=== PATIENT | female | born 1995 | race Caucasian/White ===

== ENCOUNTER 2020-01-03 14:00 | Observation (INO) | payer OTHER, SELFPAY ==
[2020-01-03 15:01] VITALS: BP 114/63; PULSE 101
[2020-01-03 15:16] VITALS: BP 115/55; PULSE 97
[2020-01-03 15:31] VITALS: BP 112/63; PULSE 100
[2020-01-03 15:46] VITALS: BP 117/66; PULSE 97
[2020-01-03 16:16] VITALS: BP 109/70; PULSE 92
[2020-01-03 16:34] LABS: Add Urine Microscopic? YES; Appearance Urine Clear (Clear); Bacteria Urine Trace /hpf; Bilirubin Urine Negative (Negative); Blood Urine Negative (Negative); Color Urine Straw (Yellow); Glucose Urine UA 3+ mg/dL (Negative); Ketones Urine Negative (Negative); Leukocyte Esterase Ur Trace LEU/UL (NEGATIVE); Nitrate Urine Negative (Negative); Protein Urine Negative (Negative); RBC Urine 0-2 /hpf (0-2); Specific Grav Ur 1.005 (1.001-1.035); Squamous Epithelial Cell Urine Moderate /hpf (Few); Urobilinogen Urine Negative mg/dL (<2.0); WBC Urine 0-3 /hpf (0-3)
[2020-01-03 17:22] VITALS: BMI 45.6
--- NOTE | 2020-01-03 17:22 | OBADM ---
This patient, Nafisa Ralph, admitted to the OB room OB Post 116 for observation. Patient/family oriented to hospital policies and general routines including ID bracelet, bed and alarms, visiting hours, pain management, procedures, bathroom and other care routines, personal items, smoking policy, room service/diet, and visiting hours. Patient/Family are encouraged to report perceived risks to care and to ask questions if they do not understand what they are told or what they should do.
--- NOTE | 2020-01-05 08:05 | P.PNOB_ITS ---
OB - Triage/Final Diagnosis Visit Information Reason for evaluation: threatened labor Evaluation Laboratory results: Laboratory Tests 01/03/20 16:24 Urine Color Straw Urine Appearance Clear Urine pH 6.0 Ur Specific [place] 1.005 Urine Protein Negative Urine Glucose (UA) 3+ H Urine Ketones Negative Ur Blood (Man) Negative Urine Nitrate Negative Urine Bilirubin Negative Urine Urobilinogen Negative Ur Leukocyte Esterase Trace H Urine RBC 0-2 Urine WBC 0-3 Ur Squamous Epith Cells Moderate H Urine Bacteria Trace
== END 2020-01-03 17:20 | disposition home or self-care (01) ==
PROVIDERS: Admitting Provider Obstetrics & Gynecology; Visit Provider Obstetrics & Gynecology
DX: O47.03 False labor before 37 completed weeks of gestation, third trimester (principal); Z3A.33 33 weeks gestation of pregnancy
CPT/HCPCS: 81001; 87086; 87088; G0378; G0379

== ENCOUNTER 2020-01-26 22:55 | Observation (INO) | payer OTHER, SELFPAY ==
[2020-01-26 23:12] VITALS: TEMP 36.3
[2020-01-26 23:30] VITALS: BP 126/69; PULSE 93
--- NOTE | 2020-01-26 23:49 | OBADM ---
This patient, Nafisa Ralph, admitted to the OB room OB Post 115 for observation. Patient/family oriented to hospital policies and general routines including ID bracelet, bed and alarms, visiting hours, pain management, procedures, bathroom and other care routines, personal items, smoking policy, room service/diet, and visiting hours. Patient/Family are encouraged to report perceived risks to care and to ask questions if they do not understand what they are told or what they should do.
--- NOTE | 2020-01-28 01:35 | PM.OBTRLD ---
OB - Triage/Final Diagnosis Final Diagnosis (1) False labor: Code(s): O47.9 - False labor, unspecified Status: Acute
--- NOTE | 2020-01-28 10:18 | PM.OBTRLD ---
OB - Triage/Final Diagnosis Final Diagnosis (1) False labor: Code(s): O47.9 - False labor, unspecified Status: Acute
== END 2020-01-26 23:45 | disposition home or self-care (01) ==
PROVIDERS: Admitting Provider Obstetrics & Gynecology; Visit Provider Obstetrics & Gynecology
DX: O47.03 False labor before 37 completed weeks of gestation, third trimester (principal); Z3A.36 36 weeks gestation of pregnancy
CPT/HCPCS: G0378; G0379

== ENCOUNTER 2020-01-27 16:16 | Observation (INO) | payer OTHER, SELFPAY ==
--- NOTE | 2020-01-27 16:16 | OBADM ---
This patient, Nafisa Ralph, admitted to the OB room Labor/Delivery/Recovery 106 for observation. Patient/family oriented to hospital policies and general routines including ID bracelet, bed and alarms, visiting hours, pain management, procedures, bathroom and other care routines, personal items, smoking policy, room service/diet, and visiting hours. Patient/Family are encouraged to report perceived risks to care and to ask questions if they do not understand what they are told or what they should do.
[2020-01-27 16:40] VITALS: BMI 46.1
[2020-01-27 17:15] VITALS: BP 117/48; PULSE 86
[2020-01-27 17:30] VITALS: BP 115/49; PULSE 81
--- NOTE | 2020-01-31 17:21 | PM.OBTRLD ---
OB - Triage/Final Diagnosis Final Diagnosis (1) False labor: Code(s): O47.9 - False labor, unspecified Status: Acute
== END 2020-01-27 18:00 | disposition home or self-care (01) ==
PROVIDERS: Admitting Provider Obstetrics & Gynecology; Visit Provider Obstetrics & Gynecology
DX: O47.03 False labor before 37 completed weeks of gestation, third trimester (principal); Z3A.36 36 weeks gestation of pregnancy
CPT/HCPCS: G0378; G0379

== ENCOUNTER 2020-02-01 15:33 | Outpatient (CLI) | payer OTHER, SELFPAY ==
[2020-02-01 17:18] VITALS: BP 116/68; PULSE 104
== END 2020-02-01 17:25 | disposition home or self-care (01) ==
LOC: ANHOBOP 17:34
PROVIDERS: Visit Provider Obstetrics & Gynecology
DX: Z34.90 Encounter for supervision of normal pregnancy, unspecified, unspecified trimester (principal); Z3A.00 Weeks of gestation of pregnancy not specified
CPT/HCPCS: 59025; 84112

== ENCOUNTER 2020-02-04 10:17 | Outpatient (RCR) | payer OTHER, SELFPAY ==
--- NOTE | ~2020-02-04 | US_ITS ---
EXAMINATION: US OB BPP wo non-stress DATE: 02/04/2020 11:37 INDICATION: Diabetes, third trimester TECHNIQUE: Real-time pelvic ultrasound was performed. The interpreting radiologist was not present fo r the study. COMPARISON: None. FINDINGS: There is a single living fetus in vertex presentation. The placenta is anterior. heart rate is 138 beats per minute (bpm). Biophysical profile performed by the technologist: breathing (30 sec sustained breathing in 30 minutes): 2 out of 2 movement (3 gross body movements in 30 minutes): 2 out of 2 tone (one episode of jdmwkpz-tehvfsxmj-odyamix limb movement): 2 out of 2 Amniotic fluid pocket (2 cm): 2 out of 2 Total score: 8 out of 8 IMPRESSION: 1. Single living fetus in vertex presentation. 2. Biophysical profile 8 out of 8. Reviewed, dictated and finalized at location B.
[2020-02-04 10:50] VITALS: BP 116/68; PULSE 87
== END 2020-02-16 07:51 | disposition home or self-care (01) ==
LOC: ANHOBOP 10:17
PROVIDERS: Visit Provider Obstetrics & Gynecology
DX: O36.8130 Decreased fetal movements, third trimester, not applicable or unspecified (principal); Z3A.37 37 weeks gestation of pregnancy
CPT/HCPCS: 59025; 76819

== ENCOUNTER 2020-02-14 06:28 | Inpatient (IN) | payer OTHER, SELFPAY ==
--- NOTE | 2020-02-11 13:48 | PC.NURSE ---
PATIENT STATES SHE ALLERGIC TO DISSOLVABLE STITCHES. STATES SHE HAD A REACTION TO THE STITCHES SO HER SCAR IS LARGE ON HER BREAST FROM MOLE BEING REMOVED
[2020-02-14] VITALS (156 sets, daily range): BP systolic 74–152; BP diastolic 44–123; PULSE 33–227; RESP 16; TEMP 36.6–37; O2SAT 84–100; BMI 47.6
--- NOTE | 2020-02-14 06:28 | LDADM ---
This patient, Nafisa Ralph, was admitted to Labor/Delivery/Recovery 108 on 02/14/20 at 06:28. Plans for labor, pain management and were discussed with patient. Patient/family oriented to hospital policies and general routines including ID bracelet, bed and alarms, visiting hours, pain management, procedures, bathroom and other care routines, personal items, smoking policy, room service/diet and guest tray routines, infant security routines, and visiting hours. Patient/Family are encouraged to report perceived risks to care and to ask questions if they do not understand what they are told or what they should do. See OBIX for further documentation.
[2020-02-14] MEDS: AMPICILLIN 2 GM/NS 100 ML 2 GM/100 ML BAG IVPB (07:08)
[2020-02-14] MEDS: LACTATED RINGERS 1,000 ML 125 ML IV CONT ×3 (07:08→12:05)
[2020-02-14] MEDS: OXYTOCIN 30 UNITS/NS 500 ML 30 UNITS/500 ML BAG IV CONT (07:09)
[2020-02-14 07:16] LABS: Basophils Percent Auto 0.3 % (0.2-1.2); Eosinophils Percent Auto 0.4 % (0-4.4); Hematocrit 38.1 % (37.0-47.0); Hemoglobin 12.6 g/dL (12.0-15.0); Immature Granulocyte Absolute 0.04 K/mm3 (0.00-0.031); Immature Granulocyte Percent A 0.4 % (0-0.5); Lymphocytes Percent Auto 25.5 % (18.3-44.2); Mean Corpuscular HGB Conc 33.1 g/dl (32-36); Mean Corpuscular Hemoglobin 24.8 pg (26-34); Mean Platelet Volume 9.7 fl (7.4-10.4); Monocytes Absolute Auto 0.6 K/mm3 (0.1-0.6); Monocytes Percent Auto 6.5 % (2.6-8.5); Neutrophils Absolute Auto 6.6 K/mm3 (1.3-6.7); Neutrophils Percent Auto 66.9 % (45.5-73.1); Platelet Count Result 287 k/mm3 (150-375); Red Blood Count 5.08 M/mm3 (4.2-5.4); Red Cell Distribution Width 12.7 % (11.5-14.5); White Blood Count 9.8 K/mm3 (4.5-10.0)
--- NOTE | 2020-02-14 07:34 | P.PNAN_ITS ---
Anes - Initial Pre Proc Eval Procedure: Labor Epidural Date/Time: 02/14/20 07:34 Surgeon: Robert Granados MD Pre Op Diagnosis: Induction of Labor Patient Data Age: 24 Gender: F Height: Weight: Last Vital Signs Temp 36.6 C 02/14/20 07:18 Pulse 85 02/14/20 07:30 BP 127/64 02/14/20 07:30 Allergies Allergy/AdvReac Type Severity Reaction Status Date / Time No Known Allergies Allergy Verified 02/11/20 13:33 Home Medications Medication Instructions Recorded Confirmed Type PNV cmb#95-ferrous fumarate-FA 1 tablet PO DAILY 02/01/20 02/01/20 History [] sertraline [Zoloft] 50 mg PO DAILY 02/01/20 02/01/20 History Laboratory Tests 02/14/20 02/14/20 07:02 07:02 WBC 9.8 K/mm3 K/mm3 (4.5-10.0) RBC 5.08 M/mm3 M/mm3 (4.2-5.4) Hgb 12.6 g/dL g/dL (12.0-15.0) Hct 38.1 % % (37.0-47.0) MCV 75.0 fl L fl (80-100) MCH 24.8 pg L pg (26-34) MCHC 33.1 g/dl g/dl (32-36) RDW 12.7 % % (11.5-14.5) Plt Count 287 k/mm3 k/mm3 (150-375) MPV 9.7 fl fl (7.4-10.4) Immature Gran % (Auto) 0.4 % % (0-0.5) Neut % (Auto) 66.9 % % (45.5-73.1) Lymph % (Auto) 25.5 % % (18.3-44.2) [place] % (Auto) 6.5 % % (2.6-8.5) Eos % (Auto) 0.4 % % (0-4.4) Baso % (Auto) 0.3 % % (0.2-1.2) Lymph # (Auto) 2.50 K/mm3 K/mm3 (0.9-3.2) [place] # (Auto) 0.6 K/mm3 K/mm3 (0.1-0.6) Eos # (Auto) 0.0 K/mm3 K/mm3 (0-0.3) Baso # (Auto) 0.0 K/mm3 K/mm3 (0.0-0.1) Abs Immat Gran (auto) 0.04 K/mm3 H K/mm3 (0.00-0.031) Absolute Neuts (auto) 6.6 K/mm3 K/mm3 (1.3-6.7) Absolute Nucleated RBC 0.0 K/mm3 K/mm3 (0.0-0.012) Nucleated RBC % 0.0 % % (0.0-0.2) RPR Pending Patient hx anesthesia problems: none Family hx anesthesia problems: none PMFSH Family History Family History Mother Diabetes mellitus Depression Grandparent Diabetes mellitus Father High cholesterol Hypertension Depression Sibling Depression Social History Social History Smoking status: Never smoker Substance use: never Spiritual care concerns: No Anes - Eval Final PreProcedure Day of Procedure 02/14/20 07:34 Patient weight: obese Heart: regular rate and rhythm Lungs: clear to auscultation Airway: Mallampati scale class III Neurological: alert and oriented ASA classification: III Emergent: no Anesthesia type and monitoring: regional epidural Informed Consent: The patient's anesthetic plan and its attendant risks and benefits were discussed with the patient/family/POA. Questions were solicited and answers provided to the satisfaction of the patient/family/POA.
--- NOTE | 2020-02-14 07:43 | WPDHPUPDATE1 ---
History and Physical Update Update Date/Time: 02/14/20 07:43 History and Physical has been reviewed, including an updated exam of the patient. There are NO changes in the patient's condition. Risks, benefits, and alternatives have been discussed and questions answered. Patient agrees to proceed with procedure.
--- NOTE | 2020-02-14 07:44 | WPDOBADMIT ---
Obstetrics - Admit Note Admission Note: record reviewed. No pertinent additions to the history and/or any subsequent changes in the physical findings that are not consistent with the expected course of the were found. Additions to the history and/or subsequent changes in the physical findings follow. None.
[2020-02-14] MEDS: AMPICILLIN 1 GM/NS 50 ML 1 GM/50 ML BAG IVPB ×2 (10:58→15:16)
--- NOTE | 2020-02-14 15:35 | PM.OBPRVD ---
OB - Delivery Note Procedure Delivery date: 02/14/20 Route of delivery: Episiotomy description: None Laceration description: None Specimen: Yes (meconium) Estimated blood loss (mL): 200 Anesthesia type: Epidural Disposition: floor Baby Weeks of gestation at delivery: 39 gender: Female Weight (pounds): 7 Weight (ounces): 5 presentation: vertex Placenta delivery description: Spontaneous cord vessel description: 3 Vessels score one minute: 9 score five minutes: 9
--- NOTE | 2020-02-14 15:37 | PM.OBPRVD ---
OB - Delivery Note Procedure Laceration description: None Estimated blood loss (mL): 200 Anesthesia type: Epidural Narrative: Patient prepped and draped in the usual manner for this procedure. Maternal expulsive efforts readily delivered vertex. Rest of baby was delivered without difficulty. Cord was clamped and cut passed onto the maternal abdomen. Placenta delivered spontaneously. Uterus was well contracted. Cervix vagina and vulva were inspected no lacerations or tears. At this point procedure was considered terminated with immediate postop condition of mother and baby both excellent [place] Baby Weeks of gestation at delivery: 39 Infant gender: Female Weight (pounds): 7 Weight (ounces): 5 presentation: vertex Placenta delivery description: Spontaneous score one minute: 9 score five minutes: 9
[2020-02-14] MEDS: OXYTOCIN 30 UNITS/NS 500 ML 30 UNITS/500 ML BAG 125 UNITS IV CONT (15:55)
[2020-02-14] MEDS: BENZOCAINE 20% AER SPR (*SP) 56 GM CAN 1 SPRAY TOPICAL (17:34)
[2020-02-14] MEDS: WITCH HAZEL 40 PADS 1 PAD TOPICAL (17:34)
--- NOTE | 2020-02-14 19:34 | OBPPTRN ---
Addendum entered by Aarti Vallejo RN 02/14/20 19:35: Pt transferred to at 1833. Original Note: Patient transferred to post room #[id number] via wheelchair. Support person present. Oriented to unit, room, information board, rooming in, admission packet and security measures. Patient verbalizes understanding. Infant with patient.
[2020-02-15] MEDS: IBUPROFEN 600 MG TABLET PO ×2 (05:12→11:40)
[2020-02-15 05:31] LABS: Hematocrit 33.6 % (37.0-47.0); Hemoglobin 10.9 g/dL (12.0-15.0)
[2020-02-15 08:45] VITALS: BP 128/83; PULSE 82; RESP 18; TEMP 36.8; O2SAT 100
[2020-02-15 09:03] LABS: Rapid Plasma Reagin Non-Reactive (NonReactive)
[2020-02-15] MEDS: DOCUSATE SODIUM 100 MG CAPSULE PO (09:57)
[2020-02-15] MEDS: MULTIVIT/MIN/PREN/FOL AC/IRON TABLET 1 TAB PO (09:57)
[2020-02-15] MEDS: LANOLIN (LANSINOH) 7.5 GM CREAM 1 APPLIC TOPICAL (10:01)
--- NOTE | 2020-02-15 11:10 | PC.NURSE ---
Consult with pt., upon entering mother has infant latched shallow to breast with nipple shield. Mother reports she used the shield with last child and was able to breastfeed for 9+ months, infant did have periods of slow weight gain. Infant is latched to tip of shield, is sleepy and not effectively nursing. Mother removes infant from breast stating she fed well last feeding. Mother has a pump set up at bedside and reports she is pumping after feedings with shield. Stressed mother should pump after every feeding with shield until milk is established and is able to gain weight. Instructions given on breast pump care and usage, pumping schedule, nipple care, and collection and storage of breast milk. Encouraged [id number], breast massage and manual expression to stimulate supply. Discussed flange size, placement and draw. Mother states she is comfortable with pump use and does not need assist. Requested mother call out for RN or LC to observe next feeding
--- NOTE | 2020-02-15 11:21 | WPDANLDPN2 ---
Anes-Prog Note L&D Date/Time: 02/15/20 11:21 Comfortable throughout: labor and delivery Neuraxial method: epidural Epidural/Spinal procedure site: clean & non-tender Neuro status: Neuro function grossly intact. Cardiovascular status: normal Respiratory status: normal Airway patency: baseline Mental status: baseline Post-Op hydration status: normal Vital Signs: Last Vital Signs Temp 36.8 C 02/15/20 08:45 Pulse 82 02/15/20 08:45 Resp 18 02/15/20 08:45 BP 128/83 02/15/20 08:45 Pulse Ox 100 02/15/20 08:45 I/O: Intake & Output 02/14/20 02/15/20 02/15/20 23:59 07:59 15:59 Intake Total 500 Output Total 633 Balance -133 Post-procedural complaints: none Patient feedback: Patient satisfied with anesthetic care.
--- NOTE | 2020-02-15 11:51 | PM.OBDSVD ---
OB - DS: Summary OB Procedures : None OB Procedures Intrapartum: Spontaneous Vag Delivery OB Procedures: : None Time Spent with Patient Time attestation: Total time spent providing and/or coordinating discharge services: DS: Data Data Completed and Pending Pending studies at discharge: Pending at discharge 02/14/20 15:27 Surgical [PTH] Routine Labs on day of discharge: Labs from last 24 hours 02/15/20 02/14/20 05:07 07:02 Hgb 10.9 L Hct 33.6 L RPR Non-reactive Discharge Plan Discharge Discharging Clinician: Robert Granados Patient Disposition: Home, Self-Care Activity: as tolerated Diet: as tolerated Patient Instructions: Antibiotic Form Stand Alone Forms: General Discharge Information Follow-up/Referrals: Robert Granados MD [Physician] - 3 Weeks Discharge Medications: Continued sertraline [Zoloft] 50 mg Tablet 50 mg PO HS RF: 0 PNV cmb#95-ferrous fumarate-FA [] 28 mg iron- 800 mcg Tablet 1 tablet PO DAILY RF: 0 Date of admission: 02/14/20 06:28 Primary Care Provider: UNKNOWN,DOCTOR Admitting Provider: Robert Granados Attending physician on admission: Robert Granados
--- NOTE | 2020-02-15 13:45 | PC.NURSE ---
Consult with pt., mother states infant is sleepy and not waking for feeding. Reviewed feeding cues, frequencies, duration of feedings, feeding elimination flow sheet, and signs of adequate intake. Demonstrated stimulation techniques to wake for feeding. easily awoken with some crying. Assisted with to breast. Reviewed positioning/alignment in football, holding breast in C hold and guided asymmetrical latch on. was fussy and crying and would not latch. Suggested to attempt with out shield. Several attempts made, infant was able to latch correctly, had a few bursts of eager suckling and would fall to sleep pushing nipple out. Attempt for 10 minutes. Suggested mother order her lunch and attempt again in 30min to 1 hours.
--- NOTE | 2020-02-15 15:10 | PC.NURSE ---
Upon entering mother is switching breasts. Mother did not call out for observation as requested. Mother reports infant latched without shield for 5 minutes then released latch. Mother was unable to latch without shield, with shield nursed for another 10 min. Mother attempted to right breast without shield, made several eager attempts to latch. infant was unable to latch. With shield infant nursed with eager bursts of long draws and occasional swallowing. Reviewed positioning/alignment in football, holding breast in C hold and guided asymmetrical latch on. Stressed to keep chin up and straight to breast. Reviewed signs of a correct latch, effective nursing and suck swallow ratio. Infant was able to maintain latch without discomfort to mother. Nipple care reviewed. Stressed for mother to pump after each feeding using the nipple shield.
[2020-02-16 13:20] VITALS: BP 116/88; PULSE 78; RESP 20; TEMP 36.9; O2SAT 99
== END 2020-02-15 17:30 | disposition home or self-care (01) | DRG 807 ==
LOC: ANHLDR 06:31 → ANHOB2 18:36
PROVIDERS: Admitting Provider Obstetrics & Gynecology; Visit Provider Obstetrics & Gynecology
DX: O99.824 Streptococcus B carrier state complicating childbirth (principal); Z37.0 Single live birth; Z3A.39 39 weeks gestation of pregnancy; O99.214 Obesity complicating childbirth; E66.9 Obesity, unspecified; O77.0 Labor and delivery complicated by meconium in amniotic fluid; O36.8330 Maternal care for abnormalities of the fetal heart rate or rhythm, third trimester, not applicable or unspecified
CPT/HCPCS: 36415; 85014; 85018; 85025; 86592; 86850; 86900; 86901; 88307; A9270; J0290; J2590; J2795; J7120